=== PATIENT | female | born 1940 | race African-American/Black ===

== ENCOUNTER 2025-03-27 23:43 | Inpatient (IN) | payer OTHER ==
[~2025-03-27] VITALS: Ht 160 cm; Wt 51.3 kg
[2025-03-27 23:47] VITALS: RESP 20
[2025-03-28] VITALS (12 sets, daily range): BP systolic 118–140; BP diastolic 60–71; PULSE 74–89; RESP 13–21; TEMP 36.4–37.1; O2SAT 95–100
[2025-03-28 00:09] LABS: BASOPHILS % 1.6 % (0.0-2.0); EOSINOPHILS % 5.4 % (0.0-5.0); HEMATOCRIT. 36.7 % (36.0-48.0); HEMOGLOBIN. 11.7 g/dL (12.0-16.0); LYMPHOCYTES % 36.9 % (20.0-50.0); MEAN PLATELET VOLUME 8.0 fl (7.4-10.4); MONOCYTES % 5.8 % (2.0-8.0); NEUTROPHILS % 50.3 % (40.0-76.0); PLATELET 331 x1000/uL (130-400); RED BLOOD CELL COUNT 3.57 mill/uL (4.2-5.4); RED CELL DISTRIBUTION WIDTH 18.8 % (11.6-14.6)
[2025-03-28 00:21] LABS: INR 1.0
[2025-03-28 00:28] LABS: CREATININE 1.2 mg/dL (0.6-1.0); UREA NITROGEN BLOOD 10 mg/dL (9-23)
[2025-03-28 00:29] LABS: PROTEIN TOTAL 7.2 g/dL (6.0-8.3); TROPONIN I HIGH SENSITIVITY 32 ng/L (3.0-34)
[2025-03-28 00:30] LABS: ASPARTATE AMINOTRANSFERASE 124 IU/L (<34); BILIRUBIN DIRECT 0.1 mg/dL (<=3.0); BILIRUBIN TOTAL 0.4 mg/dL (0.1-1.0)
[2025-03-28 00:32] LABS: BG BASE EXCESS -3.6 mmol/L (-2.0-3.0); BG CARBOXYHEMOGLOBIN 1.1 % (0.5-1.5); BG DEOXYHEMOGLOBIN 0.1 % (0.0-5.0); BG FRACTION INSPIRED OXYGEN 100; BG HCO3 ACT 22.0 mmol/L (21.0-28.0); BG METHEMOGLOBIN 0.2 % (0.5-1.5); BG OXYGEN SATURATION 99.9 % (94.0-98.0); BG OXYHEMOGLOBIN 98.6 % (94.0-98.0); BG PCO2 41.6 mmHg (32.0-45.0); BG PH 7.341 (7.350-7.450); BG PO2 380.7 mmHg (83.0-108.0); BG SAMPLE SITE RIGHT RADIAL; BG TOTAL HEMOGLOBIN 11.9 g/dL (12.0-16.0); BG VENT MODE MASK - BIPAP; BG VENT RATE 18.0 set
[2025-03-28] MEDS: FUROSEMIDE 20MG/2ML VIAL IVP NR (01:52)
[2025-03-28] MEDS: ALBUTEROL (0.083%) 2.5MG/3ML NEB HHN NR (02:33)
[2025-03-28] MEDS: IPRATROPIUM/ALBUTEROL 0.5-3(2.5)MG/3ML NEB HHN SCH (04:00)
[2025-03-28 04:18] LABS: CLARITY URINE CLEAR (CLEAR); COLOR URINE YELLOW (YELLOW); GLUCOSE URINE NEGATIVE (NEGATIVE); KETONES URINE NEGATIVE (NEGATIVE); LEUKOCYTE ESTERASE URINE NEGATIVE (NEGATIVE); NITRITE URINE NEGATIVE (NEGATIVE); OCCULT BLOOD URINE NEGATIVE (NEGATIVE); PH URINE 5.5 (4.5-8.0); PROTEIN URINE 1+ (NEGATIVE); SPECIFIC GRAVITY URINE 1.007 (1.005-1.030); UROBILINOGEN URINE 0.2 E.U./dL (0.2-1.0)
[2025-03-28 05:06] LABS: BACTERIA URINE NONE SEEN; RBC URINE NONE SEEN /hpf (0-2); SQUAMOUS EPITHELIAL CELL URINE NONE SEEN /lpf (RARE/1+); WBC URINE NONE SEEN /hpf (0-2); YEAST URINE NONE SEEN
[2025-03-28 06:03] LABS: INFLUENZA TYPE A Presumptive Negative (Pres. Neg.); INFLUENZA TYPE B Presumptive Negative (Pres. Neg.); RESPIRATORY SYNCYTIAL VIRUS Not Detected (Not Detectd)
[2025-03-28] MEDS ORDERED: IOHEXOL-350 100 ML BOTTLE ONE (07:13)
[2025-03-28] MEDS ORDERED: ONDANSETRON HCL 4MG/2ML INJ IV PRN (10:15)
[2025-03-28] MEDS ORDERED: IPRATROPIUM/ALBUTEROL 0.5-3(2.5)MG/3ML NEB HHN PRN (10:15)
[2025-03-28] MEDS ORDERED: NA PHOS,M-B/NA PHOS,DI-BA ENEMA 118ML PR PRN (10:15)
[2025-03-28] MEDS ORDERED: GUAIFENESIN 200MG/10ML SUGAR FREE UDC PO PRN (10:15)
[2025-03-28] MEDS ORDERED: CLONIDINE 0.1MG TABLET PO PRN (10:15)
[2025-03-28] MEDS ORDERED: DOCUSATE SODIUM 100MG CAPSULE PO PRN (10:15)
[2025-03-28] MEDS ORDERED: ACETAMINOPHEN 325MG TABLET PO PRN ×2 (10:15)
[2025-03-28] MEDS ORDERED: MAGNESIUM/ALUMINUM HYDROXIDE/SIMETHICONE 30ML UDC PO PRN (10:15)
[2025-03-28] MEDS ORDERED: AZITHROMYCIN 500MG/250ML 250 ML IV SCH (10:15)
[2025-03-28] MEDS ORDERED: DEXTROSE 50% WATER 50ML SYRINGE IV PRN (11:15)
[2025-03-28] MEDS: CEFTRIAXONE 1GM/50ML 50 ML IV SCH (11:33)
[2025-03-28] MEDS: SODIUM CHLORIDE 0.9% 1,000 ML IV SCH (11:33)
[2025-03-28] MEDS: AMLODIPINE 5MG TABLET PO SCH (11:34)
[2025-03-28] MEDS: LOSARTAN 25 MG TABLET PO SCH (11:34)
[2025-03-28] MEDS: BLOOD SUGAR DIAGNOSTIC STRIP TEST SCH (12:30)
[2025-03-28] MEDS: INSULIN LISPRO 100 UNITS/ML SUBCUT SCH (13:00)
[2025-03-28] MEDS: AZITHROMYCIN 500 MG TABLET PO SCH (14:49)
[2025-03-28 16:53] LABS: CLARITY URINE CLEAR (CLEAR); COLOR URINE YELLOW (YELLOW); GLUCOSE URINE NEGATIVE (NEGATIVE); KETONES URINE NEGATIVE (NEGATIVE); LEUKOCYTE ESTERASE URINE NEGATIVE (NEGATIVE); NITRITE URINE NEGATIVE (NEGATIVE); OCCULT BLOOD URINE NEGATIVE (NEGATIVE); PH URINE 7.5 (4.5-8.0); PROTEIN URINE NEGATIVE (NEGATIVE); SPECIFIC GRAVITY URINE 1.015 (1.005-1.030); UROBILINOGEN URINE 0.2 E.U./dL (0.2-1.0)
[2025-03-28 17:01] LABS: VITAMIN B12 SERUM 376 pg/mL (211-911)
[2025-03-28 17:03] LABS: PHOSPHORUS 2.9 mg/dL (2.5-4.9)
[2025-03-28 17:06] LABS: FOLIC ACID (FOLATE) SERUM > 20.00 ng/mL (>5.38)
[2025-03-28] MEDS ORDERED: LOSA25TA26 PO (19:40)
[2025-03-28] MEDS ORDERED: AMLO5TAB88 PO (19:41)
[2025-03-28] MEDS: GUAIFENESIN 600MG ER TABLET PO SCH (22:15)
[2025-03-28] MEDS: FAMOTIDINE 20MG TABLET PO SCH (22:15)
[2025-03-29] VITALS (16 sets, daily range): BP systolic 104–134; BP diastolic 49–75; PULSE 72–97; RESP 12–21; TEMP 36.2–36.8; O2SAT 89–100
[2025-03-29] MEDS ORDERED: MELATONIN 3MG TABLET PO NR
[2025-03-29 07:01] LABS: BASOPHILS % 1.2 % (0.0-2.0); EOSINOPHILS % 3.3 % (0.0-5.0); HEMATOCRIT. 35.8 % (36.0-48.0); HEMOGLOBIN. 11.9 g/dL (12.0-16.0); LYMPHOCYTES % 16.4 % (20.0-50.0); MEAN PLATELET VOLUME 8.2 fl (7.4-10.4); MONOCYTES % 9.9 % (2.0-8.0); NEUTROPHILS % 69.2 % (40.0-76.0); PLATELET 294 x1000/uL (130-400); RED BLOOD CELL COUNT 3.55 mill/uL (4.2-5.4); RED CELL DISTRIBUTION WIDTH 18.2 % (11.6-14.6)
[2025-03-29 07:28] LABS: CREATININE 0.8 mg/dL (0.6-1.0); TRIGLYCERIDE 61 mg/dL (0-150); UREA NITROGEN BLOOD 8 mg/dL (9-23)
[2025-03-29 07:29] LABS: LACTATE DEHYDROGENASE 175 IU/L (120-246); LDL CHOLESTEROL 75 mg/dL (5-100)
[2025-03-29] MEDS: ENOXAPARIN 40MG/0.4ML SYR SUBCUT SCH (09:11)
[2025-03-29] MEDS: ATORVASTATIN CALCIUM 40MG TABLET PO SCH (20:45)
[2025-03-30] VITALS (12 sets, daily range): BP systolic 97–133; BP diastolic 48–68; PULSE 68–97; RESP 13–20; TEMP 36.2–36.7; O2SAT 96–100
[2025-03-30 06:00] LABS: BASOPHILS % 2.0 % (0.0-2.0); EOSINOPHILS % 3.5 % (0.0-5.0); HEMATOCRIT. 32.8 % (36.0-48.0); HEMOGLOBIN. 10.8 g/dL (12.0-16.0); LYMPHOCYTES % 20.0 % (20.0-50.0); MEAN PLATELET VOLUME 8.0 fl (7.4-10.4); MONOCYTES % 11.5 % (2.0-8.0); NEUTROPHILS % 63.0 % (40.0-76.0); PLATELET 309 x1000/uL (130-400); RED BLOOD CELL COUNT 3.24 mill/uL (4.2-5.4); RED CELL DISTRIBUTION WIDTH 18.5 % (11.6-14.6)
[2025-03-30 06:21] LABS: CREATININE 0.9 mg/dL (0.6-1.0); UREA NITROGEN BLOOD 7 mg/dL (9-23)
[2025-03-30] MEDS: ASPIRIN 81MG TABLET PO SCH (09:14)
[2025-03-30] MEDS ORDERED: ATOR40TA70 MT (13:45)
[2025-03-30] MEDS ORDERED: ASPI-1497 MT (13:45)
[2025-03-30] MEDS ORDERED: MIRT7.5T11 MT (13:45)
[2025-03-30] MEDS ORDERED: MIRTAZAPINE 15MG TABLET PO SCH (21:00)
[2025-03-31 10:11] LABS: ALPHA FETOPROTEIN TUMOR MARKER 3.9 ng/mL (0.0-8.7); CARCINOEMBRYONIC AG - SEND OUT 1.9 ng/mL (0.0-4.7)
[2025-04-01 13:10] LABS: COLD AGGLUTININ TITER Negative (Neg <1:32)
== END 2025-03-30 15:00 | disposition home or self-care (01) | DRG 189 ==
LOC: EDBD 23:43 → ER 23:43 → 5EST 03-28 01:39 → EDBEDREQDT 03-28 02:09 → EDBEDREQ 03-28 02:09 → EDBEDREQTM 03-28 02:09
PROVIDERS: ADMIT Internal Medicine; ATTEND Internal Medicine
PROC: 5A09357 Assistance with Respiratory Ventilation, Less than 24 Consecutive Hours, Continuous Positive Airway Pressure (ICD-10-PCS; principal; 2025-03-27)
PROC: 5A09357 Assistance with Respiratory Ventilation, Less than 24 Consecutive Hours, Continuous Positive Airway Pressure (ICD-10-PCS; 2025-03-28)
DX: J96.01 Acute respiratory failure with hypoxia (principal); J18.9 Pneumonia, unspecified organism; C79.9 Secondary malignant neoplasm of unspecified site; N17.9 Acute kidney failure, unspecified; J91.8 Pleural effusion in other conditions classified elsewhere; I13.0 Hypertensive heart and chronic kidney disease with heart failure and stage 1 through stage 4 chronic kidney disease, or unspecified chronic kidney disease; R16.0 Hepatomegaly, not elsewhere classified; N18.9 Chronic kidney disease, unspecified; D53.9 Nutritional anemia, unspecified; F32.A Depression, unspecified; R91.1 Solitary pulmonary nodule; Z20.822 Contact with and (suspected) exposure to COVID-19; R73.9 Hyperglycemia, unspecified; N28.1 Cyst of kidney, acquired; R74.01 Elevation of levels of liver transaminase levels; F43.21 Adjustment disorder with depressed mood; I25.10 Atherosclerotic heart disease of native coronary artery without angina pectoris; Z63.4 Disappearance and death of family member; Z79.899 Other long term (current) drug therapy
CPT/HCPCS: 36415; 36600; 71045; 71275; 80048; 80061; 80076; 81003; 82040; 82105; 82270; 82375; 82378; 82550; 82607; 82728; 82746; 82805; 82962; 83036; 83540; 83550; 83615; 83735; 83880; 84100; 84145; 84443; 84484; 85025; 85044; 85379; 86157; 86850; 86880; 86900; 87070; 87420; 87426; 87804; 93005; 93923; 93970; 94070; 94640; 94660; 99285; A4606; A4615; J0696; J1650; J1938; J7030; Q9967